=== PATIENT | female | born 1945 | race Two or more races ===

== ENCOUNTER 2019-03-29 09:18 | Day surgery (SDC) | payer MEDICARE, OTHER ==
[~2019-03-29] VITALS: Ht 168.9 cm; Wt 64.0 kg
--- NOTE | 2019-03-29 07:49 | Pre-Procedure Note/Attestation ---
Pre-Procedure Note/Attestation Complete Prior to Procedure Planned Procedure: left - Removal of cataract and placement of intraocular lens , left eye Procedure Narrative: Removal of cataract and placement of intraocular lens, left eye Indications for Procedure Pre-Operative Diagnosis: Cataract, combined, left eye Attestation I attest that I discussed the nature of the procedure; its benefits; risks and complications; and alternatives (and the risks and benefits of such alternatives ), prior to the procedure, with the patient (or the patient's legal sales account representative). I attest that, if there was a reasonable possibility of needing a blood transfusion, the patient (or the patient's legal sales account representative) was given the [place] [facility] standardized written summary, pursuant to the [place] Blood Safety Act ([place] Health and Safety Code # 1645, as amended). I attest that I re-evaluated the patient just prior to the surgery and that there has been no change in the patient's H&P, except as documented below: Nguyễn Schuler MD Mar 29, 2019 07:49
[2019-03-29] MEDS ORDERED: Pred Forte 1% Opth Susp 1ml ONE (09:59)
[2019-03-29] MEDS ORDERED: Lidocaine 4% Amp ONE (09:59)
[2019-03-29] MEDS ORDERED: Carbachol 0.01% Op Soln 1.5ml vial ONE (09:59)
[2019-03-29] MEDS ORDERED: Polysporin Opth Oint 3.5gm ONE (09:59)
[2019-03-29] MEDS ORDERED: Timolol 0.5% Op Soln 2.5ml ONE (09:59)
[2019-03-29] MEDS ORDERED: EPINEPHrine 1mg/1ml Amp ONE (09:59)
[2019-03-29] MEDS ORDERED: Lidocaine 1% MPF 10mg/ml 5ml ONE ×2 (09:59→13:15)
[2019-03-29] MEDS ORDERED: Fluorescein Strips ONE (09:59)
[2019-03-29] MEDS ORDERED: Tetracaine 0.5% Opth 4ml Soln ONE (10:00)
[2019-03-29] MEDS ORDERED: Povidone-Iodine 5% opth solution ONE (10:00)
[2019-03-29] MEDS ORDERED: Acetylcholine Injection (OR) ONE (10:00)
[2019-03-29] MEDS ORDERED: BSS 500ml btl ONE ×2 (10:00→14:11)
[2019-03-29] MEDS ORDERED: BSS 15ml BTL ONE (10:00)
[2019-03-29] MEDS ORDERED: Dexamethasone 4mg/ml vial ONE (10:00)
[2019-03-29] MEDS ORDERED: Sodium Hyaluronate 10 mg/ml 0.85ml ONE ×2 (10:01→14:37)
[2019-03-29] MEDS ORDERED: Bupivacaine 0.75% 30ml vial INJ ONE (10:01)
[2019-03-29] MEDS ORDERED: acyclovir PO (10:03)
[2019-03-29] MEDS ORDERED: jakafi PO (10:04)
[2019-03-29] MEDS ORDERED: simvastatin PO (10:05)
[2019-03-29] MEDS ORDERED: SERTRALINE HCL25 MG ORAL (10:06)
[2019-03-29] MEDS ORDERED: gabapentin PO (10:07)
[2019-03-29] MEDS ORDERED: AMBIEN5 MG ORAL (10:08)
[2019-03-29] MEDS ORDERED: [UNRECOGNIZED DRUG - REMARK] PO (10:10)
[2019-03-29] MEDS ORDERED: OXYCODONE HCL10 MG ORAL (10:11)
[2019-03-29] MEDS ORDERED: XANAX0.5 MG ORAL (10:12)
[2019-03-29] MEDS ORDERED: Flurbiprofen 0.03% Opth Sol 2.5ml ONE (10:16)
[2019-03-29] MEDS ORDERED: Akten 3.5% 1ml Btl ONE (10:16)
[2019-03-29] MEDS ORDERED: Phenylephrine 10% Opth Soln 5ml ONE (10:16)
[2019-03-29] MEDS ORDERED: Cyclopentolate 1% Opth Sol 2ml ONE (10:16)
[2019-03-29] MEDS ORDERED: Tropicamide 1% Opth 15ml Soln ONE (10:16)
[2019-03-29] MEDS: Flurbiprofen 0.03% Opth Sol 2.5ml LEFT EYE SCH ×3 (10:26→10:56)
[2019-03-29] MEDS: Tropicamide 1% Opth 15ml Soln LEFT EYE SCH ×3 (10:26→10:54)
[2019-03-29] MEDS: Cyclopentolate 1% Opth Sol 2ml LEFT EYE SCH ×3 (10:26→10:56)
[2019-03-29] MEDS: Phenylephrine 10% Opth Soln 5ml LEFT EYE SCH ×3 (10:26→10:55)
[2019-03-29] MEDS: Akten 3.5% 1ml Btl LEFT EYE SCH ×3 (10:26→10:56)
[2019-03-29 10:53] VITALS: BP 158/78
[2019-03-29] MEDS: Ciprofloxacin Opth Soln 2.5ml LEFT EYE SCH ×5 (12:24→12:36)
[2019-03-29] MEDS ORDERED: LR 1000ml 1,000 ML IVLG SCH (12:36)
--- NOTE | 2019-03-29 12:36 | Anethesia Preoperative Eval ---
Anesthesia Pre-op PMH/ROS General Date of Evaluation: Mar 29, 2019 Anesthesiologist: Leobardo ASA Score: ASA 3 Mallampati Score Class I : Soft palate, uvula, fauces, pillars visible Class II: Soft palate, uvula, fauces visible Class III: Soft palate, base of uvula visible Class IV: Only hard plate visible Mallampati Classification: Class III Surgeon: Ganga Diagnosis: Left cataract Surgical Procedure: Left cataract extraction with IOL Anesthesia History: none Family History: no anesthesia problems Allergies: Coded Allergies: MORPHINE (Verified Allergy, Severe, throat closes -up, 03/29/19) MEPERIDINE (Verified Adverse Reaction, Intermediate, nausea and vomiting, 03/29/19) Medications: see eMAR Patient NPO?: Yes NPO Date: Mar 28, 2019 NPO Time: 22:00 Past Medical History Cardiovascular: Reports: HTN, other - HLD; Denies: CAD, [place], valve dz, arrhythmia Pulmonary: Denies: asthma, COPD, JOSE, other Gastrointestinal/Genitourinary: Denies: GERD, CRI, ESRD, other Neurologic/Psychiatric: Reports: depression/anxiety; Denies: dementia, CVA, TIA, other Endocrine: Denies: DM, hypothyroidism, steroids, other HEENT: Denies: cataract (L), cataract (R), glaucoma, [place] (L), [place] (R), other Hematology/Immune: Reports: other - h/o leukemia-s/p bone marrow transplant 2016; Denies: anemia, DVT, bleeding disorder Musculoskeletal/Integumentary: Reports: OA; Denies: RA, DJD, DDD, edema, other PSxH Narrative: LEIA, appy, T&A, r THR, b ctr, right elbow sx Anesthesia Pre-op Phys. Exam Physician Exam Last Vital Signs Date Time Temp Pulse Resp B/P (MAP) Pulse Ox O2 Delivery O2 Flow Rate FiO2 03/29/19 11:12 Room Air 03/29/19 10:53 97.5 60 18 158/78 96 Constitutional: NAD Cardiovascular: RRR Respiratory: CTA Airway Exam Mallampati Score: Class II MO: limited ROM: limited Anesthesia Pre-op A/P Labs see chart Studies Pre-op Studies: EKG - sr Risk Assessment & Plan Assessment: ASA III Plan: MAC Status Change Before Surgery: No Pre-Antibiotics Drug: N/A Mo-[place],Carlie MD Mar 29, 2019 12:36
[2019-03-29] MEDS ORDERED: DiphenhydrAMINE 50mg/ml Inj IVP PRN (12:45)
[2019-03-29] MEDS ORDERED: Midazolam 2mg/2ml Inj ONE (13:15)
[2019-03-29] MEDS ORDERED: fentaNYL 100 mcg/2 mL IV ONE (13:15)
[2019-03-29] MEDS ORDERED: Propofol 200mg/20ml IV ONE (13:15)
[2019-03-29] MEDS ORDERED: DiphenhydrAMINE 50mg/ml Inj ONE (13:16)
[2019-03-29] MEDS ORDERED: NS Irrig 1000ml ONE (13:30)
[2019-03-29] MEDS ORDERED: LR 1000ml ONE (13:30)
[2019-03-29] MEDS ORDERED: Sterile Water Irrig 1000ml IRRIG ONE (13:30)
[2019-03-29 14:30] VITALS: BP 158/74
--- NOTE | 2019-03-29 14:33 | Immediate Post-Op Evaluation ---
Immediate Post-Op Evalulation Immediate Post-Op Evalulation Procedure: Left cataract extraction with IOL Date of Evaluation: Mar 29, 2019 Time of Evaluation: 14:35 IV Fluids: 200 Blood Products: 0 Estimated Blood Loss: 0 Urinary Output: 0 Blood Pressure Systolic: 158 Blood Pressure Diastolic: 74 Pulse Rate: 56 Respiratory Rate: 16 O2 Sat by Pulse Oximetry: 98 Temperature (Fahrenheit): 97 Pain Score (1-10): 0 Nausea: No Vomiting: No Complications 0 Patient Status: awake, patent, none Hydration Status: adequate Drug: N/A Carlie Redman MD Mar 29, 2019 14:33
--- NOTE | 2019-03-29 14:34 | 48 Hour Post Anesthesia Eval ---
Post Anesthesia Evaluation Procedure: Left cataract extraction with IOL Date of Evaluation: Mar 29, 2019 Airway: patent Nausea: No Vomiting: No Pain Intensity: 0 Hydration Status: adequate Cardiopulmonary Status: at baseline Mental Status/LOC: patient returned to baseline Post-Anesthesia Complications: 0 Follow-up care needed: ready to discharge Carlie Redman MD Mar 29, 2019 14:34
[2019-03-29 14:35] VITALS: BP 173/67
--- NOTE | 2019-03-29 14:37 | Brief Operative Note ---
Immediate Post Operative Note Operative Note Pre-op Diagnosis: Cataract, combined, left eye Procedure: PHACO PCIOL, OS Post-op Diagnosis: same as pre-op Surgeon: Amirah Schuler MD MS Underwriting Assistant: none Anesthesiologist: Dr Mo Anesthesia: local, MAC Specimen: none Complications: none Fluids: see chart Implant(s) used?: Yes - henriquez tecnis ZCB00 20.0 Nguyễn Schuler MD Mar 29, 2019 14:37
--- NOTE | 2019-03-29 14:38 | Discharge Instructions ---
Discharge Instructions Discharge Instructions Follow Up Orders Continue preop eye medications Wear eye shield at all times except to place medication For Congestive Heart Failure Reminder Report to your physician any weight gain of 5 pounds or more in one week. Nguyễn Schuler MD Mar 29, 2019 14:38
[2019-03-29 14:40] VITALS: BP 155/57
[2019-03-29 14:50] VITALS: BP 147/68
[2019-03-29 15:05] VITALS: BP 139/56
--- NOTE | 2019-03-31 15:45 | Operative Note - Dictated ---
DATE OF OPERATION: 03/29/2019 SURGEON: Nguyễn Schuler M.D. SEWING DEMONSTRATOR SURGEON: None. ANESTHESIOLOGIST: Riky Johnson M.D. ANESTHESIA: Local/standby/monitored anesthesia care. PREOPERATIVE DIAGNOSIS: Cataract, combined, left eye. POSTOPERATIVE DIAGNOSIS: Cataract, combined, left eye. PROCEDURE: 1. Phacoemulsification of cataract, left eye. 2. Placement of posterior chamber intraocular lens, left eye (model Winston, ZCB00, power 20.0). SPECIMENS: None. COMPLICATIONS: None. INDICATIONS FOR SURGERY: The patient has had the painless progressive decrease in the visual acuity in left eye secondary to cataract. The patient understands the risks of surgery including infection, bleeding, need for further surgery, loss of vision, no improvement in vision, loss of the eye, loss of life, glaucoma, retinal detachment, understands these risks and elects to proceed with surgery. FINDINGS: The patient had a +3 to 4 nuclear sclerotic cataract as well as a +2 cortical cataract. OPERATIVE NOTE: After informed consent was obtained, the patient was brought into the operating room, placed in supine position. Cardiac and respiratory monitors were attached. A time-out was performed. All criteria were met and everyone in the room agreed. The left eye was then draped and prepped in sterile manner for ocular surgery. A lid speculum was placed in the eye. A 1% lidocaine preservative-free was injected at the approximate 2:30 limbus. A conjunctival peritomy from approximately 2 o'clock to 3 o'clock was made and dissected posteriorly. Hemostasis was maintained with bipolar cautery. A 2.6 mm limbal incision was made and centered at approximately 2:30 and dissected anteriorly. Paracentesis was made at approximately 5:30 and Shugarcaine was injected into the anterior chamber followed by Healon. The anterior chamber was then entered using a 2.6 mm keratome through the limbal incision. An anterior capsulorrhexis was then performed. Hydrodissection and hydrodelineation of the lens was then performed. The lens was then phacoemulsified using divide and conquer four-quadrant technique. Residual cortical material was then aspirated. The lens was taken from its package, placed into the cartridge and the tip of the cartridge was placed through the limbal incision. The lens was injected into the capsular bag and centered nicely with a Sinskey hook. Healon was aspirated from the anterior chamber and capsular bag. Healon was then aspirated from the anterior chamber and capsular bag. One 10-0 nylon interrupted suture was then placed through the limbal incision and the knot was rotated and buried. Care was taken during the entire procedure not to touch the endothelium. The wounds were checked and found to be watertight. The lid speculum and drapes were removed from the eye and drops of Pred Forte and moxifloxacin were applied to the eye followed by Maxitrol ointment and a shield. The patient tolerated the procedure well and left the operating room awake, alert, and in stable condition. Nguyễn Schuler M.D. DR: MONSE JOB#: [id number] CC:
== END 2019-03-29 15:15 | disposition home or self-care (01) ==
LOC: SUR 09:18
DX: H25.12 Age-related nuclear cataract, left eye (principal); H25.012 Cortical age-related cataract, left eye; Z88.6 Allergy status to analgesic agent; Z88.8 Allergy status to other drugs, medicaments and biological substances; I10 Essential (primary) hypertension; E78.5 Hyperlipidemia, unspecified; F32.9 Major depressive disorder, single episode, unspecified; F41.9 Anxiety disorder, unspecified; Z85.6 Personal history of leukemia; M19.90 Unspecified osteoarthritis, unspecified site; Z90.89 Acquired absence of other organs; Z96.641 Presence of right artificial hip joint
CPT/HCPCS: 66984; J0171; J1100; J1200; J2250; J2704; J3010; V2632; 94003; 94150

== ENCOUNTER 2019-08-30 10:25 | Day surgery (SDC) | payer MEDICARE, OTHER ==
[2019-08-30] VITALS (7 sets, daily range): BP systolic 116–144; BP diastolic 48–75
[~2019-08-30] VITALS: Ht 167.6 cm; Wt 67.1 kg
--- NOTE | 2019-08-30 07:05 | Pre-Procedure Note/Attestation ---
Pre-Procedure Note/Attestation Complete Prior to Procedure Planned Procedure: right Procedure Narrative: Removal of cataract and placement of intraocular lens, right eye Indications for Procedure Pre-Operative Diagnosis: Cataract, combined, right eye Attestation I attest that I discussed the nature of the procedure; its benefits; risks and complications; and alternatives (and the risks and benefits of such alternatives ), prior to the procedure, with the patient (or the patient's legal health and safety representative). I attest that, if there was a reasonable possibility of needing a blood transfusion, the patient (or the patient's legal health and safety representative) was given the [facility] standardized written summary, pursuant to the Jacob[place] Blood Safety Act ([place] Health and Safety Code # 1645, as amended). I attest that I re-evaluated the patient just prior to the surgery and that there has been no change in the patient's H&P, except as documented below: Nguyễn Schuler MD Aug 30, 2019 07:05
[~2019-08-30 10:25] MED LIST: AMBIEN5 MG ORAL; OXYCODONE HCL10 MG ORAL; SERTRALINE HCL25 MG ORAL; XANAX0.5 MG ORAL; [UNRECOGNIZED DRUG - REMARK] PO; acyclovir PO; gabapentin PO; jakafi PO; simvastatin PO
[2019-08-30] MEDS ORDERED: Lidocaine 1% MPF 10mg/ml 5ml ONE (10:34)
[2019-08-30] MEDS ORDERED: Midazolam 2mg/2ml Inj ONE (10:34)
[2019-08-30] MEDS ORDERED: fentaNYL 100 mcg/2 mL IV ONE (10:34)
[2019-08-30] MEDS ORDERED: DiphenhydrAMINE 50mg/ml Inj ONE (10:35)
[2019-08-30] MEDS ORDERED: EPINEPHrine 1mg/1ml Amp ONE (10:36)
[2019-08-30] MEDS ORDERED: BSS 500ml btl ONE ×3 (10:37→13:15)
[2019-08-30] MEDS ORDERED: BSS 15ml BTL ONE (10:37)
--- NOTE | 2019-08-30 10:53 | Anethesia Preoperative Eval ---
Anesthesia Pre-op PMH/ROS General Date of Evaluation: Aug 30, 2019 Anesthesiologist: Leobardo ASA Score: ASA 3 Mallampati Score Class I : Soft palate, uvula, fauces, pillars visible Class II: Soft palate, uvula, fauces visible Class III: Soft palate, base of uvula visible Class IV: Only hard plate visible Mallampati Classification: Class III Surgeon: basia Diagnosis: right cataract Surgical Procedure: right cataract extraction with iol Anesthesia History: none Family History: no anesthesia problems Allergies: Coded Allergies: MORPHINE (Verified Allergy, Severe, throat closes -up, 03/29/19) MEPERIDINE (Verified Adverse Reaction, Intermediate, nausea and vomiting, 03/29/19) Medications: see eMAR Patient NPO?: Yes NPO Date: Aug 30, 2019 NPO Time: 00:00 Past Medical History Cardiovascular: Reports: HTN, other - HLD; Denies: CAD, [place], valve dz, arrhythmia Pulmonary: Denies: asthma, COPD, JOSE, other Gastrointestinal/Genitourinary: Denies: GERD, CRI, ESRD, other Neurologic/Psychiatric: Reports: depression/anxiety; Denies: dementia, CVA, TIA, other Endocrine: Denies: DM, hypothyroidism, steroids, other HEENT: Denies: cataract (L), cataract (R), glaucoma, [place] (L), [place] (R), other Hematology/Immune: Reports: other - h/o leukemia s/p bone marrow transplant; Denies: anemia, DVT, bleeding disorder Musculoskeletal/Integumentary: Reports: OA; Denies: RA, DJD, DDD, edema, other PSxH Narrative: LEIA, T&A, lap appy, left cataract, right breast lumpectomy, bladder sling, right THR, bilateral ctr, right elbow sx Anesthesia Pre-op Phys. Exam Physician Exam see chart Constitutional: NAD Cardiovascular: RRR Respiratory: CTA Airway Exam Mallampati Score: Class III MO: limited ROM: limited Anesthesia Pre-op A/P Labs see chart Studies Pre-op Studies: EKG - sr Risk Assessment & Plan Assessment: ASA III Plan: MAC Status Change Before Surgery: No Pre-Antibiotics Drug: N/A Carlie Redman MD Aug 30, 2019 10:53
[2019-08-30] MEDS ORDERED: LR 1000ml 1,000 ML IVLG SCH (10:55)
[2019-08-30] MEDS ORDERED: DiphenhydrAMINE 50mg/ml Inj IVP PRN (11:00)
[2019-08-30] MEDS ORDERED: Tropicamide 1% Opth 15ml Soln ONE (11:08)
[2019-08-30] MEDS ORDERED: Phenylephrine 10% Opth Soln 5ml ONE (11:08)
[2019-08-30] MEDS ORDERED: Akten 3.5% 1ml Btl ONE (11:08)
[2019-08-30] MEDS ORDERED: Ciprofloxacin Opth Soln 2.5ml ONE (11:08)
[2019-08-30] MEDS ORDERED: Tobradex Opth Susp 2.5ml ONE (11:08)
[2019-08-30] MEDS ORDERED: Cyclopentolate 1% Opth Sol 2ml ONE (11:08)
[2019-08-30] MEDS ORDERED: Flurbiprofen 0.03% Opth Sol 2.5ml ONE (11:08)
[2019-08-30] MEDS: Akten 3.5% 1ml Btl RIGHT EYE SCH ×3 (11:14→11:44)
[2019-08-30] MEDS: Flurbiprofen 0.03% Opth Sol 2.5ml RIGHT EYE SCH ×3 (11:14→11:45)
[2019-08-30] MEDS: Cyclopentolate 1% Opth Sol 2ml RIGHT EYE SCH ×3 (11:15→11:44)
[2019-08-30] MEDS: Tobradex Opth Susp 2.5ml RIGHT EYE SCH ×3 (11:15→11:45)
[2019-08-30] MEDS: Phenylephrine 10% Opth Soln 5ml RIGHT EYE SCH ×3 (11:15→11:45)
[2019-08-30] MEDS: Tropicamide 1% Opth 15ml Soln RIGHT EYE SCH ×3 (11:15→11:44)
[2019-08-30] MEDS: Ciprofloxacin Opth Soln 2.5ml RIGHT EYE SCH ×3 (11:16→11:43)
[2019-08-30] MEDS ORDERED: NS Irrig 1000ml ONE (12:00)
[2019-08-30] MEDS ORDERED: Sterile Water Irrig 1000ml IRRIG ONE (12:00)
[2019-08-30] MEDS ORDERED: LR 1000ml ONE (12:00)
[2019-08-30] MEDS ORDERED: Sodium Hyaluronate 10 mg/ml 0.85ml ONE ×3 (12:15→13:33)
[2019-08-30] MEDS ORDERED: Polysporin Opth Oint 3.5gm ONE (12:15)
[2019-08-30] MEDS ORDERED: Pred Forte 1% Opth Susp 1ml ONE (12:15)
[2019-08-30] MEDS ORDERED: Povidone-Iodine 5% opth solution ONE (12:18)
[2019-08-30] MEDS ORDERED: Dexamethasone 4mg/ml vial ONE (12:18)
[2019-08-30] MEDS ORDERED: Tetracaine 0.5% Opth 4ml Soln ONE (12:21)
--- NOTE | 2019-08-30 13:49 | Immediate Post-Op Evaluation ---
Immediate Post-Op Evalulation Immediate Post-Op Evalulation Procedure: Right cataract extraction with IOL Date of Evaluation: Aug 30, 2019 Time of Evaluation: 13:52 IV Fluids: 300 Blood Products: 0 Estimated Blood Loss: min Urinary Output: 0 Blood Pressure Systolic: 144 Blood Pressure Diastolic: 75 Pulse Rate: 60 Respiratory Rate: 16 O2 Sat by Pulse Oximetry: 98 Temperature (Fahrenheit): 97 Pain Score (1-10): 0 Nausea: No Vomiting: No Complications 0 Patient Status: awake, reacts, patent, none Hydration Status: adequate Drug: N/A Carlie Redman MD Aug 30, 2019 13:49
--- NOTE | 2019-08-30 13:51 | 48 Hour Post Anesthesia Eval ---
Post Anesthesia Evaluation Procedure: Right cataract extraction with IOL Date of Evaluation: Aug 30, 2019 Airway: patent Nausea: No Vomiting: No Pain Intensity: 0 Hydration Status: adequate Cardiopulmonary Status: at baseline Mental Status/LOC: patient returned to baseline Post-Anesthesia Complications: 0 Follow-up care needed: ready to discharge Carlie Redman MD Aug 30, 2019 13:51
--- NOTE | 2019-08-30 13:52 | Discharge Instructions ---
Discharge Instructions Discharge Instructions Follow Up Orders Followup tomorrow in Dr Schuler's office Wear shield at all times except to place eye drops Continue preop eye drops For Congestive Heart Failure Reminder Report to your physician any weight gain of 5 pounds or more in one week. Nguyễn Schuler MD Aug 30, 2019 13:52
[2019-08-30] MEDS ORDERED: Timolol 0.5% Op Soln 2.5ml ONE (13:55)
--- NOTE | 2019-08-30 13:58 | Brief Operative Note ---
Immediate Post Operative Note Operative Note Pre-op Diagnosis: Dense Cataract, combined, right eye Procedure: Phaco PC IOL OD Use of vision blue for capsular staining Post-op Diagnosis: same as pre-op Surgeon: Amirah Schuler MD MS Anesthesiologist: Dr Mo Anesthesia: local, MAC Specimen: none Complications: none Fluids: see chart Implant(s) used?: Yes - teccarrol zcb00 22.5 Nguyễn Schuler MD Aug 30, 2019 13:58
--- NOTE | 2019-08-30 23:15 | Operative Note - Dictated ---
DATE OF OPERATION: 08/30/2019 SURGEON: Nguyễn Schuler M.D. UNHAIRING INSPECTOR SURGEON: None. ANESTHESIOLOGIST: Dr. Mo. ANESTHESIA: Local/standby/monitored anesthesia care. PREOPERATIVE DIAGNOSIS: Dense cataract, right eye. POSTOPERATIVE DIAGNOSIS: Dense cataract, right eye. PROCEDURE: 1. Phacoemulsification of cataract, right eye. 2. Placement of posterior chamber intraocular lens, right eye. 3. Use of VisionBlue for capsular staining, right eye. 4. Placement of posterior chamber intraocular lens, right eye (Model Tecnis ZBC00, power 22.5). SPECIMENS: None. COMPLICATIONS: None. INDICATIONS FOR SURGERY: The patient has had the painless progressive decrease in visual acuity in the right eye secondary to cataract. The patient understands the risks of surgery including infection, bleeding, need for further surgery, loss of vision, no improvement in vision, loss of the eye, loss of life, glaucoma, retinal detachment, and understands these risks and elects to proceed with surgery. FINDINGS: The patient had a 4+ very dense nuclear cataract in the right eye, that also include +3 cortical changes. The capsule remained intact during the entire procedure. OPERATIVE NOTE: After informed consent was obtained, the patient was brought into the operating room, placed in supine position. Cardiac and respiratory monitors were attached. A time-out was performed and all criteria were met and everyone in the room agreed. The right eye was draped and prepped in sterile manner for ocular surgery. A lid speculum was placed in the eye. A 1% lidocaine preservative-free was injected at the approximate 9 o'clock limbus. The conjunctival peritomy from approximately 8:30 to 9:30 was made and dissected posteriorly. Hemostasis was maintained with bipolar cautery. A 2.6 mm limbal incision was made, centered approximately 9 o'clock and dissected anteriorly. Paracentesis was made at approximately 12 o'clock and Shugarcaine was injected into the anterior chamber followed by an air bubble. VisionBlue was injected into the anterior chamber and the anterior capsule was stained. The VisionBlue was then irrigated from the anterior chamber and Healon was injected into the anterior chamber. The anterior capsulorrhexis was then performed. Hydrodissection and hydrodelineation was attempted, but this is a very dense cataract. The lens was then phacoemulsified using divide and conquer four-quadrant technique. The lens was very dense and I had to go into the setting #4 for the phacoemulsification. The lens was phacoemulsified using a four-quadrant technique. Residual cortical material was then aspirated. The Healon was injected into the anterior chamber and capsular bag. The lens was taken from its package, placed into the cartridge and the tip of the cartridge was placed through the limbal incision. The lens was injected into the capsular bag and centered nicely with a Sinskey hook. Healon was then aspirated from the anterior chamber and capsular bag. One 10-0 nylon interrupted suture was placed through the limbal incision, was rotated and buried. Care was taken during the entire procedure not to touch the endothelium. The wounds were checked and found to be watertight. The conjunctiva was then closed with forceps cautery. The lid speculum was removed from the eye and the lens was inspected and both haptics and the optic were in the capsular bag, centered at approximately the 9 o'clock to 6 o'clock meridian. The drapes were removed from the eye and drops of Pred Forte and ciprofloxacin and TobraDex were applied to the eye followed by Maxitrol ointment and a shield. The patient tolerated the procedure well and left the operating room awake, alert, and in stable condition. Nguyễn Schuler M.D. DR: MONSE JOB#: [id number] CC:
== END 2019-08-30 14:45 | disposition home or self-care (01) ==
LOC: SUR 10:25
DX: H25.11 Age-related nuclear cataract, right eye (principal); H25.011 Cortical age-related cataract, right eye; I10 Essential (primary) hypertension; E78.5 Hyperlipidemia, unspecified; F32.9 Major depressive disorder, single episode, unspecified; F41.9 Anxiety disorder, unspecified; M19.90 Unspecified osteoarthritis, unspecified site; Z90.89 Acquired absence of other organs; Z96.641 Presence of right artificial hip joint; Z85.6 Personal history of leukemia
CPT/HCPCS: 66982; J0171; J1100; J1200; J2250; J2405; J3010; J7120; V2632; 94003; 94150